=== PATIENT | male | born 1965 | race African-American/Black ===

== ENCOUNTER 2023-11-09 11:54 | Emergency (ER) | payer OTHER ==
[~2023-11-09] VITALS: Ht 167.6 cm; Wt 71.7 kg
[2023-11-09] MEDS ORDERED: OMEP40CA4 PO (12:19)
[2023-11-09] MEDS ORDERED: ROSU20TA61 PO (12:19)
[2023-11-09] MEDS ORDERED: GABA-1171 PO (15:04)
[2023-11-09 15:29] VITALS: BP 158/81; TEMP 98.1; O2SAT 97
== END 2023-11-09 15:30 | disposition home or self-care (01) ==
LOC: M ED 11:54
DX: I73.9 Peripheral vascular disease, unspecified (principal); M72.2 Plantar fascial fibromatosis; E78.5 Hyperlipidemia, unspecified; F17.210 Nicotine dependence, cigarettes, uncomplicated; Z79.899 Other long term (current) drug therapy